=== PATIENT | male | born 1970 | race Caucasian/White ===

== ENCOUNTER 2017-02-08 16:11 | Observation (INO) | payer SELFPAY ==
[~2017-02-08] VITALS: Ht 190.5 cm; Wt 156.7 kg
[~2017-02-08 16:11] MED LIST: ALPRAZOLAM0.5 MG PO; AMOXICILLIN500 MG OR; AMOXICILLIN500 MG PO; ASPIRIN EC81 MG PO; ASPIRIN325 MG PO; AVELOX400 MG OR; CHERATUSSIN OR; CIPRODEX1 ML OT; CIPROFLOXACIN500 M1 PO; CIPROFLOXACN500 MG PO; DIFLUCAN100 MG PO; EAR DROPS EARWA6.5 % EX; EC ASPIRIN325 MG PO; FLEXERIL OR; FLONASE NASAL50 MCG; LISINOPRIL10 MG PO; LORATADINE D PO; METOPROL TAR100 MG PO; PRILOSEC20 MG/CAP PO; TAM75CAP OR; ULTRAM50 M1 OR; ZPAK PO; no home meds
[2017-02-08 16:44] LABS: HEMATOCRIT 46.6 % (39.0-50.0); IMMATURE GRANULOCYTES 0.4 % (0.0-1.0); MEAN CELL VOLUME 83.5 fL CALC (80.0-100.0); MEAN CORPUSCULAR HGB 28.7 pG CALC (26.0-32.0); MEAN CORPUSCULAR HGB CONC 34.3 g/L CALC (32.0-36.0); NEUT# 7.56 thou/uL (1.82-7.42); RED BLOOD COUNT 5.58 mill/uL (4.70-6.10); RED CELL DISTRI WIDTH 12.5 % (11.5-15.5)
[2017-02-08 16:57] LABS: ALBUMIN 5.1 g/dL (3.2-5.0); ALKALINE PHOSPHATASE 70 u/l (38-126); AMYLASE 44 u/l (30-110); ANION GAP 17 (6-22 (CALC)); BILIRUBIN, TOTAL 0.9 mg/dL (0.0-1.4); BUN 16 mg/dL (9-20); BUN/CREATININE RATIO 14 (12-20 (CALC)); CARBON DIOXIDE 31 mmol/l (22-30); CHLORIDE 99 mmol/l (95-108); CREATININE 1.1 mg/dL (0.7-1.3); GFR > 60 ML/MIN (>=60 (CALC)); GFR FOR AFR.AMER. > 60 ML/MIN (>=60 (CALC)); GLUCOSE 102 mg/dL (75-110); LIPASE 94 u/l (23-300); POTASSIUM 4.6 mmol/l (3.5-5.1); SGOT/AST 28 u/l (17-59); SGPT/ALT 45 u/l (21-72); SODIUM 142 mmol/l (137-146); TOTAL PROTEIN 8.5 g/dL (6.3-8.2)
[2017-02-08 17:08] LABS: MYOGLOBIN 37 ng/mL (0 - 121)
[2017-02-08] MEDS ORDERED: LOPRESSOR 550 MG/TAB PO (17:11)
[2017-02-08] MEDS ORDERED: ASPIRIN EC325 MG PO (17:11)
[2017-02-08 17:19] LABS: INTERNATIONAL NORMALIZED RATIO 0.9 RATIO (0.7-1.3); PROTHROMBIN TIME 10.1 SECONDS (9.0-12.5)
[2017-02-08 20:38] LABS: URINE BILIRUBIN - DIPSTICK NEGATIVE (NEGATIVE); URINE BLOOD DIPSTICK NEGATIVE (NEGATIVE); URINE CLARITY CLEAR; URINE COLOR YELLOW; URINE GLUCOSE - DIPSTICK NEGATIVE (NEGATIVE); URINE KETONE NEGATIVE (NEGATIVE); URINE LEUK ESTERASE NEGATIVE (NEGATIVE); URINE NITRITE - DIPSTICK NEGATIVE (Negative); URINE PH 6.5 (4.5-8.0); URINE PROTEIN - DIPSTICK 30 mg/dL (NEG-TRACE); URINE UROBILINOGEN - DIPSTICK 0.2 E.U./dL (0.2)
[2017-02-08 21:19] LABS: URINE MUCUS FEW hpf (NONE-FEW); URINE SQUAMOUS EPITHELIAL CELL FEW EPI/hpf (0-FEW)
[2017-02-08 23:25] VITALS: BP 147/89
[2017-02-09 04:25] VITALS: BP 145/85
[2017-02-09 06:20] LABS: HEMATOCRIT 42.3 % (39.0-50.0); HEMOGLOBIN 14.4 g/dl (14.0-18.0); IMMATURE GRANULOCYTES 0.2 % (0.0-1.0); MEAN CELL VOLUME 83.8 fL CALC (80.0-100.0); MEAN CORPUSCULAR HGB 28.5 pG CALC (26.0-32.0); NEUT# 9.38 thou/uL (1.82-7.42); RED BLOOD COUNT 5.05 mill/uL (4.70-6.10); RED CELL DISTRI WIDTH 12.8 % (11.5-15.5)
[2017-02-09 06:26] LABS: ALBUMIN 4.5 g/dL (3.2-5.0); ALKALINE PHOSPHATASE 64 u/l (38-126); ANION GAP 17 (6-22 (CALC)); BILIRUBIN, TOTAL 0.9 mg/dL (0.0-1.4); BUN 15 mg/dL (9-20); BUN/CREATININE RATIO 16 (12-20 (CALC)); CALCIUM 9.6 mg/dL (8.4-10.2); CARBON DIOXIDE 27 mmol/l (22-30); CHLORIDE 102 mmol/l (95-108); CREATININE 0.9 mg/dL (0.7-1.3); GFR > 60 ML/MIN (>=60 (CALC)); GFR FOR AFR.AMER. > 60 ML/MIN (>=60 (CALC)); GLUCOSE 102 mg/dL (75-110); POTASSIUM 4.5 mmol/l (3.5-5.1); SGOT/AST 24 u/l (17-59); SGPT/ALT 44 u/l (21-72); SODIUM 141 mmol/l (137-146); TOTAL PROTEIN 7.4 g/dL (6.3-8.2)
[2017-02-09 07:45] VITALS: BP 134/70
[2017-02-09 10:56] VITALS: BP 131/73
[2017-02-09 15:19] VITALS: BP 128/77
[2017-02-09 19:30] VITALS: BP 141/88
[2017-02-09 23:32] VITALS: BP 149/80
[2017-02-10 03:58] VITALS: BP 144/83
[2017-02-10 05:36] LABS: HEMATOCRIT 39.3 % (39.0-50.0); IMMATURE GRANULOCYTES 0.4 % (0.0-1.0); MEAN CELL VOLUME 85.1 fL CALC (80.0-100.0); MEAN CORPUSCULAR HGB 28.1 pG CALC (26.0-32.0); MEAN CORPUSCULAR HGB CONC 33.1 g/L CALC (32.0-36.0); NEUT# 3.8 thou/uL (1.82-7.42); RED BLOOD COUNT 4.62 mill/uL (4.70-6.10); RED CELL DISTRI WIDTH 12.7 % (11.5-15.5)
[2017-02-10 06:07] LABS: ANION GAP 12 (6-22 (CALC)); BUN 15 mg/dL (9-20); BUN/CREATININE RATIO 15 (12-20 (CALC)); CALCIUM 8.4 mg/dL (8.4-10.2); CARBON DIOXIDE 27 mmol/l (22-30); CHLORIDE 105 mmol/l (95-108); GFR > 60 ML/MIN (>=60 (CALC)); GFR FOR AFR.AMER. > 60 ML/MIN (>=60 (CALC)); GLUCOSE 84 mg/dL (75-110); POTASSIUM 4.1 mmol/l (3.5-5.1); SODIUM 140 mmol/l (137-146)
[2017-02-10 07:36] VITALS: BP 146/90
[2017-02-10] MEDS ORDERED: ASPIRIN EC325 MG PO (09:31)
[2017-02-10] MEDS ORDERED: LOPRESSOR 550 MG/TAB PO (09:31)
[2017-02-10] MEDS ORDERED: LORTAB 5-325 MG1 TAB PO (09:31)
== END 2017-02-10 10:09 | disposition home or self-care (01) | DRG 313 ==
LOC: ENPENDDIS → ED 16:11 → ED-I 21:37 → ED 21:38 → MS2 21:39
PROVIDERS: Emergency Medicine; ADMIT Internal Medicine Geriatric Medicine; ATTEND Internal Medicine Geriatric Medicine
DX: R07.9 Chest pain, unspecified (principal); E66.01 Morbid (severe) obesity due to excess calories; I10 Essential (primary) hypertension; R10.11 Right upper quadrant pain; R11.2 Nausea with vomiting, unspecified
CPT/HCPCS: G0378; Q9967

== ENCOUNTER 2017-06-10 14:04 | Inpatient (IN) | payer SELFPAY ==
[~2017-06-10] VITALS: Ht 193 cm; Wt 162.6 kg
[~2017-06-10 14:04] MED LIST changes: +ASPIRIN EC325 MG PO; +LOPRESSOR 550 MG/TAB PO; +LORTAB 5-325 MG1 TAB PO
[2017-06-10 15:10] LABS: HEMATOCRIT 33.1 % (39.0-50.0); IMMATURE GRANULOCYTES 0.6 % (0.0-1.0); MEAN CELL VOLUME 85.1 fL CALC (80.0-100.0); MEAN CORPUSCULAR HGB 28.3 pG CALC (26.0-32.0); MEAN CORPUSCULAR HGB CONC 33.2 g/L CALC (32.0-36.0); NEUT# 5.79 thou/uL (1.82-7.42); RED BLOOD COUNT 3.89 mill/uL (4.70-6.10); RED CELL DISTRI WIDTH 13.1 % (11.5-15.5)
[2017-06-10 15:24] LABS: PROTHROMBIN TIME 10.2 SECONDS (9.0-12.5)
[2017-06-10 15:31] LABS: ALBUMIN 4.6 g/dL (3.2-5.0); ALKALINE PHOSPHATASE 58 u/l (38-126); AMYLASE 30 u/l (30-110); ANION GAP 17 (6-22 (CALC)); BILIRUBIN, TOTAL 0.5 mg/dL (0.0-1.4); BUN 21 mg/dL (9-20); BUN/CREATININE RATIO 21 (12-20 (CALC)); CALCIUM 9.5 mg/dL (8.4-10.2); CARBON DIOXIDE 24 mmol/l (22-30); CHLORIDE 104 mmol/l (95-108); GFR > 60 ML/MIN (>=60 (CALC)); GFR FOR AFR.AMER. > 60 ML/MIN (>=60 (CALC)); GLUCOSE 89 mg/dL (75-110); LIPASE 103 u/l (23-300); SGOT/AST 23 u/l (17-59); SGPT/ALT 47 u/l (21-72); SODIUM 140 mmol/l (137-146)
[2017-06-10 16:37] LABS: URINE BILIRUBIN - DIPSTICK NEGATIVE (NEGATIVE); URINE BLOOD DIPSTICK NEGATIVE (NEGATIVE); URINE CLARITY CLEAR; URINE COLOR YELLOW; URINE GLUCOSE - DIPSTICK NEGATIVE (NEGATIVE); URINE KETONE NEGATIVE (NEGATIVE); URINE LEUK ESTERASE NEGATIVE (NEGATIVE); URINE NITRITE - DIPSTICK NEGATIVE (Negative); URINE PH 5.5 (4.5-8.0); URINE PROTEIN - DIPSTICK TRACE mg/dL (NEG-TRACE); URINE SPECIFIC GRAVITY >=1.030; URINE UROBILINOGEN - DIPSTICK 0.2 E.U./dL (0.2)
[2017-06-10 17:18] VITALS: BP 159/95
[2017-06-10 19:26] VITALS: BP 150/87
[2017-06-11] VITALS: BP 134/81
[2017-06-11 04:00] VITALS: BP 126/69
[2017-06-11 05:57] LABS: HEMATOCRIT 32.5 % (39.0-50.0); HEMOGLOBIN 11.1 g/dl (14.0-18.0); IMMATURE GRANULOCYTES 1.3 % (0.0-1.0); MEAN CELL VOLUME 85.3 fL CALC (80.0-100.0); MEAN CORPUSCULAR HGB 29.1 pG CALC (26.0-32.0); MEAN CORPUSCULAR HGB CONC 34.2 g/L CALC (32.0-36.0); NEUT# 4.07 thou/uL (1.82-7.42); RED BLOOD COUNT 3.81 mill/uL (4.70-6.10); RED CELL DISTRI WIDTH 13.2 % (11.5-15.5)
[2017-06-11 06:01] LABS: ALBUMIN 3.9 g/dL (3.2-5.0); ALKALINE PHOSPHATASE 52 u/l (38-126); ANION GAP 16 (6-22 (CALC)); BILIRUBIN, TOTAL 0.9 mg/dL (0.0-1.4); BUN 17 mg/dL (9-20); BUN/CREATININE RATIO 19 (12-20 (CALC)); CALCIUM 8.8 mg/dL (8.4-10.2); CARBON DIOXIDE 21 mmol/l (22-30); CHLORIDE 105 mmol/l (95-108); CREATININE 0.9 mg/dL (0.7-1.3); GFR > 60 ML/MIN (>=60 (CALC)); GFR FOR AFR.AMER. > 60 ML/MIN (>=60 (CALC)); GLUCOSE 97 mg/dL (75-110); POTASSIUM 4.4 mmol/l (3.5-5.1); SGOT/AST 31 u/l (17-59); SGPT/ALT 38 u/l (21-72); SODIUM 137 mmol/l (137-146); TOTAL PROTEIN 6.4 g/dL (6.3-8.2)
[2017-06-11 08:44] VITALS: BP 150/100
== END 2017-06-11 10:30 | disposition home or self-care (01) | DRG 378 ==
LOC: ED 14:04 → ED-I 16:24 → ED 16:37 → MS2 16:38
PROVIDERS: Emergency Medicine; ADMIT Internal Medicine Geriatric Medicine; ATTEND Internal Medicine Geriatric Medicine
DX: K62.5 Hemorrhage of anus and rectum (principal); Z68.41 Body mass index [BMI] 40.0-44.9, adult; I10 Essential (primary) hypertension; E66.9 Obesity, unspecified; Z90.49 Acquired absence of other specified parts of digestive tract
CPT/HCPCS: Q9967; S0164

== ENCOUNTER 2017-12-25 05:02 | Inpatient (IN) | payer SELFPAY ==
[~2017-12-25] VITALS: Ht 193 cm; Wt 158.0 kg
[2017-12-25] MEDS ORDERED: PRILOSEC20 MG/CAP PO (05:27)
[2017-12-25 05:45] LABS: HEMATOCRIT 49.3 % (39.0-50.0); HEMOGLOBIN 16.1 g/dl (14.0-18.0); IMMATURE GRANULOCYTES 0.3 % (0.0-1.0); MEAN CELL VOLUME 82.7 fL CALC (80.0-100.0); MEAN CORPUSCULAR HGB CONC 32.7 g/L CALC (32.0-36.0); NEUT# 10.36 thou/uL (1.82-7.42); RED BLOOD COUNT 5.96 mill/uL (4.70-6.10); RED CELL DISTRI WIDTH 14.1 % (11.5-15.5)
--- NOTE | 2017-12-25 05:49 | NUR ---
PT STATES THAT HE HAS HAD NAUSEA & VOMITING SINCE SUNDAY 12/24 WITH DIAHRRHEA STARTING THAT EVENING & CONTINUING TODAY.
[2017-12-25 05:52] LABS: ALBUMIN 5.4 g/dL (3.2-5.0); ALKALINE PHOSPHATASE 93 u/l (38-126); AMYLASE 38 u/l (30-110); ANION GAP 22 (6-22 (CALC)); BILIRUBIN, TOTAL 0.8 mg/dL (0.0-1.4); BUN 23 mg/dL (9-20); BUN/CREATININE RATIO 19 (12-20 (CALC)); CARBON DIOXIDE 21 mmol/l (22-30); CHLORIDE 108 mmol/l (95-108); CREATININE 1.2 mg/dL (0.7-1.3); GFR > 60 ML/MIN (>=60 (CALC)); GFR FOR AFR.AMER. > 60 ML/MIN (>=60 (CALC)); LIPASE 97 u/l (23-300); POTASSIUM 4.2 mmol/l (3.5-5.1); SGOT/AST 27 u/l (17-59); SGPT/ALT 41 u/l (21-72); SODIUM 146 mmol/l (137-146); TOTAL PROTEIN 8.6 g/dL (6.3-8.2)
--- NOTE | 2017-12-25 07:00 | NUR ---
REPORT RECIEVED FORM KRYSTAL CORCORAN.
--- NOTE | 2017-12-25 07:49 | NUR ---
PT AMBULATED TO BATHROOM TO OBTAIN URINE AND STOOL SAMPLE WITH A STEADY GAIT.
--- NOTE | 2017-12-25 08:07 | NUR ---
PT C/O RETURN OF NAUSEA. ER MD AWARE OF SAME AND CONTINUED ELEVATED BP. AWAITING NEW ORDERS
[2017-12-25 08:08] LABS: URINE BILIRUBIN - DIPSTICK NEGATIVE (NEGATIVE); URINE BLOOD DIPSTICK NEGATIVE (NEGATIVE); URINE CLARITY CLEAR; URINE COLOR YELLOW; URINE GLUCOSE - DIPSTICK NEGATIVE (NEGATIVE); URINE KETONE NEGATIVE (NEGATIVE); URINE LEUK ESTERASE NEGATIVE (NEGATIVE); URINE NITRITE - DIPSTICK NEGATIVE (Negative); URINE PROTEIN - DIPSTICK 100 mg/dL (NEG-TRACE); URINE SPECIFIC GRAVITY 1.015; URINE UROBILINOGEN - DIPSTICK 0.2 E.U./dL (0.2)
[2017-12-25 08:19] LABS: URINE AMORPH SEDIMENT FEW hpf (NONE-FER); URINE WBC 0-2 WBC/hpf (0-5)
[2017-12-25 08:20] LABS: URINE RBC 0-2 RBC/hpf (0-5)
[2017-12-25 08:21] LABS: URINE COARSE GRANULAR CAST FEW lpf; URINE HYALINE CAST FEW lpf (NONE-RARE)
[2017-12-25 08:22] LABS: URINE CASTS FEW lpf (NONE-RARE)
[2017-12-25 08:53] LABS: C. DIFFICILE TOXIN A&B NEGATIVE (NEGATIVE)
--- NOTE | 2017-12-25 09:13 | NUR ---
SBAR PRINTED TO FLOOR
--- NOTE | 2017-12-25 09:18 | NUR ---
Admission Note Report Given to: YANIRA RICE Transported by: X Wheelchair Stretcher Transported with: X Nurse Transporter Patent [id number] Family Nurse Practitioner
--- NOTE | 2017-12-25 09:28 | NUR ---
PT CAME VIA STRETCHER BY AMISHA KAUR. JAZMYNE IN ROOM TO ASSIST PT TO ROOM.
[2017-12-25 09:30] VITALS: BP 158/100
--- NOTE | 2017-12-25 10:00 | NUR ---
PT IS RESTING IN BED. ORIENTED TO CALL LIGHT SYSTEM, AND SAFETY PRECAUTIONS REINFORCED. PT VERBALIZED UNDERSTANDING. IN ROOM.
--- NOTE | 2017-12-25 13:27 | NUR ---
ZOFRAN GIVEN SEE EMAR FOR NAUSEA. PT DENIES ANY OTHER NEEDS AT THIS TIME.
[2017-12-25 13:32] VITALS: BP 167/87
--- NOTE | 2017-12-25 16:05 | NUR ---
ASSESSMENT DONE, RESPS EVEN AND UNLABORED. #20 RAC THAT IS INFUSING NS 100ML. IN ROOM. PT STATED THAT HE HAS NOT HAD DIRRAHEA SINCE HE HAS BEEN IN [facility]. PT DENIES ANY NEEDS AT THIS TIME.
[2017-12-25 16:07] VITALS: BP 124/65
--- NOTE | 2017-12-25 16:32 | NUR ---
PT IS SITTING IN BED USING HIS CELL PHONE AND AT SIDE. PT DENIES PAIN, NAUSEA OR DIARRHEA AT THIS TIME. CALL LIGHT IN REACH.
[2017-12-25 19:10] VITALS: BP 168/97
--- NOTE | 2017-12-25 19:35 | NUR ---
BEDSIDE REPORT RECEIVED FROM KRYSTAL DOYLE. PT RESTING IN BED WATCHING TV. C/O MODERATE PAIN TO ABDOMEN WITH ASSOCIATED NAUSEA. RESPIRATIONS EVEN AND UNLABORED ON ROOM AIR. AT BEDSIDE. PLAN OF CARE DISCUSSED. PT ENCOURAGED TO VERBALIZE CONCERNS. STATES UNDERSTANDING. SAFETY MEASURES IN PLACE. CALL LIGHT WITHIN REACH.
[2017-12-26 01:08] VITALS: BP 149/86
--- NOTE | 2017-12-26 02:21 | NUR ---
PT ASLEEP AT THIS TIME WITH NO SIGNS OF DISTRESS NOTED; SNORING. RESPIRATIONS EVEN AND UNLABORED ON ROOM AIR. REMAINS AT BEDSIDE. IV FLUIDS INFUSING WITHOUT DIFFICULTY; IV SITE APPEARS HEALTHY. PRN CLONIDINE GIVEN FOR BP OF 168/97 WITH F/U BP OF 149/86. WILL CONTINUE TO MONITOR. DENIES PAIN AND NAUSEA. SAFETY MEASURES IN PLACE. CALL LIGHT WITHIN REACH.
[2017-12-26 04:04] VITALS: BP 145/89
--- NOTE | 2017-12-26 04:47 | NUR ---
PT SLEPT WELL THROUGHOUT THE NIGHT WITH NO FURTHER C/O PAIN OR NAUSEA. USES URINAL TO VOID AT BEDSIDE. REMAINS WITH PT. NO ACUTE CHANGES IN CONDITION NOTED. SAFETY MEASURES IN PLACE. CALL LIGHT WITHIN REACH.
[2017-12-26 05:43] LABS: HEMATOCRIT 42.5 % (39.0-50.0); HEMOGLOBIN 13.8 g/dl (14.0-18.0); IMMATURE GRANULOCYTES 0.4 % (0.0-1.0); MEAN CELL VOLUME 83.2 fL CALC (80.0-100.0); MEAN CORPUSCULAR HGB CONC 32.5 g/L CALC (32.0-36.0); NEUT# 7.32 thou/uL (1.82-7.42); RED BLOOD COUNT 5.11 mill/uL (4.70-6.10); RED CELL DISTRI WIDTH 14.2 % (11.5-15.5)
[2017-12-26 05:45] LABS: ALBUMIN 3.8 g/dL (3.2-5.0); ALKALINE PHOSPHATASE 68 u/l (38-126); ANION GAP 14 (6-22 (CALC)); BILIRUBIN, TOTAL 0.8 mg/dL (0.0-1.4); BUN 22 mg/dL (9-20); BUN/CREATININE RATIO 21 (12-20 (CALC)); CARBON DIOXIDE 25 mmol/l (22-30); CHLORIDE 107 mmol/l (95-108); GFR > 60 ML/MIN (>=60 (CALC)); GFR FOR AFR.AMER. > 60 ML/MIN (>=60 (CALC)); POTASSIUM 3.8 mmol/l (3.5-5.1); SGOT/AST 25 u/l (17-59); SGPT/ALT 38 u/l (21-72); SODIUM 142 mmol/l (137-146); TOTAL PROTEIN 6.3 g/dL (6.3-8.2)
--- NOTE | 2017-12-26 07:00 | NUR ---
BEDSIDE REPORT RECEIVED BY GLADIS,NURSE. PT IS RESTING IN BED AND AT SIDE. PT DENIES PAIN AT THIS TIME. CALL LIGHT IN REACH.
[2017-12-26 07:54] VITALS: BP 150/83
--- NOTE | 2017-12-26 08:00 | NUR ---
PT IS SITTING IN BED. ASSESSMENT DONE AND RESPS EVEN AND UNLABORED. #20 RAC: INFUSING NS AT 100ML. PT DENIES PAIN AT THIS TIME. ORIENTED TO CALL LIGHT AND SAFETY PRECAUTIONS REINFORCED. IN ROOM.
[2017-12-26] MEDS ORDERED: AMPICILLIN500 MG PO (09:01)
--- NOTE | 2017-12-26 12:10 | NUR ---
Discharge instructions given. Patient verbalizes understanding of same. Discharged in stable condition via Ambulatory to Home with spouse. All belongings sent with pt.
== END 2017-12-26 12:16 | disposition home or self-care (01) | DRG 372 ==
LOC: ED 05:02 → ED-I 08:24 → ED 09:05 → MS2 09:06
PROVIDERS: Emergency Medicine; ADMIT Internal Medicine Geriatric Medicine; ATTEND Internal Medicine Geriatric Medicine
DX: A02.0 Salmonella enteritis (principal); K56.0 Paralytic ileus; E66.01 Morbid (severe) obesity due to excess calories; Z68.41 Body mass index [BMI] 40.0-44.9, adult; I10 Essential (primary) hypertension; Z90.49 Acquired absence of other specified parts of digestive tract; E86.0 Dehydration

== ENCOUNTER 2020-02-26 | Observation (INO) | payer SELFPAY ==
[~2020-02-26] MED LIST changes: +AMPICILLIN500 MG PO
--- NOTE | 2020-02-26 15:20 | NUR ---
PT TO ROOM VIA WC FOR BEDSIDE TRIAGE
[2020-02-26] MEDS ORDERED: ZESTRIL10 M1 PO (15:54)
[2020-02-26] MEDS ORDERED: [UNRECOGNIZED DRUG - OTHER] PO (15:55)
--- NOTE | 2020-02-26 16:04 | NUR ---
PT MEDICATED PER MAR FOR XIAO AND CHEST PRESSURE; MONITORING DEVICES IN PLACE; ADVISED OF CONTINUED WAIT TIME; CALL LIGHT WITHIN REACH; WILL CONTINUE TO MONITOR
[2020-02-26 16:13] LABS: HEMATOCRIT 46.3 % (39.0-50.0); IMMATURE GRANULOCYTES 0.2 % (0.0-5.0); MEAN CELL VOLUME 83.9 fL CALC (80.0-100.0); MEAN CORPUSCULAR HGB 27.2 pG CALC (26.0-32.0); MEAN CORPUSCULAR HGB CONC 32.4 g/dL CAL (32.0-36.0); NEUT# 5.8 thou/uL (1.82-7.42); RED BLOOD COUNT 5.52 mill/uL (4.70-6.10); RED CELL DISTRI WIDTH 13.2 % (11.5-15.5)
[2020-02-26 16:29] LABS: ANION GAP 13 (6-22 (CALC)); BUN 15 mg/dL (9-20); BUN/CREATININE RATIO 18 (12-20 (CALC)); CARBON DIOXIDE 26 mmol/l (22-30); CHLORIDE 101 mmol/l (95-108); CREATININE 0.8 mg/dL (0.7-1.3); GFR > 60 ML/MIN (>=60 (CALC)); GFR FOR AFR.AMER. > 60 ML/MIN (>=60 (CALC)); POTASSIUM 4.2 mmol/l (3.5-5.1); SODIUM 135 mmol/l (137-146)
--- NOTE | 2020-02-26 17:00 | NUR ---
PT MEDICATED PER MAR FOR HTN; ADVISED OF CONTINUED WAIT TIME; MONITORING DEVICES IN PLACE; WILL CONTINUE TO MONITOR
--- NOTE | 2020-02-26 17:31 | NUR ---
PT AMB TO BR WITH SLOW STEADY GAIT
--- NOTE | 2020-02-26 18:58 | NUR ---
A/OX3 CLEAR SPEECH NO DEFICITS GCS 15 MAEW. SR WITHOUT ECTOPY.W/P/D SKIN
--- NOTE | 2020-02-26 19:07 | NUR ---
PHONE REPORT TO NURSE SHERRI HINOJOSA [facility]
--- NOTE | 2020-02-26 19:08 | NUR ---
DR CABA CALLED RE BP AND XIAO
--- NOTE | 2020-02-26 19:13 | NUR ---
PT TRANSPORTED TO MS RM 262 VIA TELE IN [facility];E CONDITION
[2020-02-26 19:18] VITALS: BP 201/106
--- NOTE | 2020-02-26 19:18 | NUR ---
191-Pt pleasant 49y/o male. Brought to med-surg room 262 from ER. RN CELINE accompanied pt and gave me handoff. Pt complains of headache. Denies chest pain. Blood pressure elevated. Admission assessment complete. Pt is stable, blood pressure unstable. Dr. Parikh is assigned MD. Pt states he is comfortable except for headache. Pt given Nitro in ED so this is an expected finding from the med. Comfort measures provided. Bed low and locked. Call light and phone within reach. Pt stable, no s/s of distress. Will continue to monitor.
[2020-02-26 21:00] VITALS: BP 144/82
--- NOTE | 2020-02-26 23:00 | NUR ---
2300-Pt complains of headache. Tylenol administered, heat pack for comfort and repositioned. Also provided nasal cannula with 2 liter of 02 as I feel that pt would benefit from increased oxygenation. No s/s of distress. Bed low and locked. Call light and phone within reach. Pt stable. Will continue to monitor.
[2020-02-26 23:50] VITALS: BP 171/97
--- NOTE | 2020-02-27 03:30 | NUR ---
0330-Pt. sitting up in bed. Hydralazine given for blood pressure of 180/98. Pt complains of headache. Reposition and provided with warm compress. No s/s of distress. Bed low and locked. Call light and phone within reach. Pt stable. Will continue to monitor.
[2020-02-27 03:37] VITALS: BP 148/89
--- NOTE | 2020-02-27 05:46 | NUR ---
0545-Pt complaining of headache. Provided PRN tylenol times 2 doses. Pt still complaining of headache. I tried calling Dr. Parikh at [phone] to discuss situation and hopefully discuss recommendation of other treatment modalities. Phone call not answered and mailbox is full. I will wait 15 minutes and try to call back.
[2020-02-27 07:41] VITALS: BP 162/90
--- NOTE | 2020-02-27 07:41 | NUR ---
PT SITTING IN BED. A&O X3. NO DISTRESS NOTED. PT A SLIGHT XIAO ALONG WITH SOME NAUSEA. NO REPORTS OF ACTIVE VOMITING. EXPLAINED TO THE PT BP HAS BEEN UNSTABLE AND THAT IT WAS TO BE MONITORED. NO OTHER NEEDS AT THIS TIME. ASSESSMENT COMPLETED. DISCUSSED POC. CALL LIGHT IN REACH. CONTINUE TO MONITOR.
--- NOTE | 2020-02-27 09:15 | NUR ---
CALLED TO VERIFY LISINOPRIL DAILY ORDERS. PER AND COMPARING TO THE LAST TIME PRESCRIPTION WAS FILLED AT [facility], PT IS TO TAKE 2 20 MG TAB ONCE A DAY FOR A TOTAL OF 40 MG INTAKE. [employer] ASSISTANTS NOTIFIED
[2020-02-27] MEDS ORDERED: ZESTRIL40 MG PO (09:20)
[2020-02-27] MEDS ORDERED: NORVASC5 M1 PO (09:54)
--- NOTE | 2020-02-27 10:22 | NUR ---
PT GIVEN MOTRIN TO HELP WITH XIAO, NORVASC AND 20 MG OF LISINPRIL GIVEN. WILL REASSESS BP
[2020-02-27 11:47] VITALS: BP 168/94
--- NOTE | 2020-02-27 11:47 | NUR ---
AP SMITH NOTIFIED OF PTS BP STILL 168/94. PER AP GIVE PT APRESOLINE IV, ONCE BP HAS BEEN STABILIZED PT CAN GO HOME
--- NOTE | 2020-02-27 16:27 | NUR ---
PO CLONIDINE GIVEN PT BP 158/58. EXPLAINED TO THE PT THAT BP WOULD BE CHECKED ONE LAST TIME. IF IT WAS WITHIN PARAMETERS HE WOULD BE DISCHARGED. IF NOT MD WOULD BE NOTIFIED.
[2020-02-27 16:28] VITALS: BP 158/88
--- NOTE | 2020-02-27 17:50 | NUR ---
D/C INSTRUCTIONS GIVEN TO PT. PT VERBALIZED UNDERSTANDING. IV REMOVED, INTACT UPON REMOVAL.
--- NOTE | 2020-02-27 17:59 | NUR ---
Discharge instructions given. Patient verbalizes understanding of same. Discharged in stable condition ambulatory to home accompanied by staff. All belongings sent with pt.
== END 2020-02-27 17:59 | disposition home or self-care (01) | DRG 313 ==
PROVIDERS: Family Medicine; ADMIT Internal Medicine
DX: R07.9 Chest pain, unspecified (principal); I10 Essential (primary) hypertension; R51 Headache; G47.30 Sleep apnea, unspecified
CPT/HCPCS: G0378

== ENCOUNTER 2021-10-30 22:31 | Emergency (ER) | payer SELFPAY ==
[~2021-10-30] VITALS: Ht 190.5 cm; Wt 147.0 kg
[~2021-10-30 22:31] MED LIST changes: +NORVASC5 M1 PO; +ZESTRIL10 M1 PO; +ZESTRIL40 MG PO; +[UNRECOGNIZED DRUG - OTHER] PO
[2021-10-31] MEDS ORDERED: MEDICAL MARIJUANA (00:01)
[2021-10-31 00:41] LABS: HEMATOCRIT 45.9 % (39.0-50.0); HEMOGLOBIN 14.9 g/dl (14.0-18.0); IMMATURE GRANULOCYTES 0.4 % (0.0-5.0); MEAN CELL VOLUME 86.8 fL CALC (80.0-100.0); MEAN CORPUSCULAR HGB 28.2 pG CALC (26.0-32.0); MEAN CORPUSCULAR HGB CONC 32.5 g/dL CAL (32.0-36.0); NEUT# 10.09 thou/uL (1.82-7.42); RED BLOOD COUNT 5.29 mill/uL (4.70-6.10); RED CELL DISTRI WIDTH 12.7 % (11.5-15.5)
[2021-10-31 00:47] LABS: ALBUMIN 4.7 g/dL (3.2-5.0); ALKALINE PHOSPHATASE 66 u/l (38-126); AMYLASE 46 u/l (30-110); ANION GAP 15 (6-22 (CALC)); BILIRUBIN, TOTAL 0.8 mg/dL (0.0-1.4); BUN 21 mg/dL (9-20); BUN/CREATININE RATIO 16 (12-20 (CALC)); CARBON DIOXIDE 24 mmol/l (22-30); CHLORIDE 104 mmol/l (95-108); CREATININE 1.3 mg/dL (0.7-1.3); GFR 59 ML/MIN (>=60 (CALC)); GFR FOR AFR.AMER. > 60 ML/MIN (>=60 (CALC)); LIPASE 111 u/l (23-300); POTASSIUM 4.6 mmol/l (3.5-5.1); SODIUM 138 mmol/l (137-146); TOTAL PROTEIN 8.1 g/dL (6.3-8.2)
[2021-10-31 00:48] LABS: SGOT/AST 32 u/l (17-59)
[2021-10-31 02:16] LABS: URINE BILIRUBIN - DIPSTICK NEGATIVE (NEGATIVE); URINE BLOOD DIPSTICK LARGE (NEGATIVE); URINE COLOR YELLOW; URINE GLUCOSE - DIPSTICK NEGATIVE (NEGATIVE); URINE KETONE NEGATIVE (NEGATIVE); URINE PROTEIN - DIPSTICK 30 mg/dL (NEG-TRACE); URINE SPECIFIC GRAVITY >=1.030; URINE UROBILINOGEN - DIPSTICK 0.2 E.U./dL (0.2)
[2021-10-31 02:17] LABS: URINE LEUK ESTERASE NEGATIVE (NEGATIVE); URINE NITRITE - DIPSTICK NEGATIVE (Negative)
[2021-10-31 02:21] LABS: URINE BACTERIA FEW hpf; URINE EPITHELIAL CELLS FEW EPI/hpf (0-FEW); URINE RBC 50-100 RBC/hpf (0-5)
[2021-10-31 02:22] LABS: URINE YEAST RARE hpf
[2021-10-31] MEDS ORDERED: ATIVAN0.5 MG PO (05:05)
[2021-10-31] MEDS ORDERED: PHENERGAN25 MG RE (05:05)
[2021-10-31 06:09] VITALS: BP 178/90
== END 2021-10-31 05:45 | disposition home or self-care (01) | DRG 392 ==
LOC: ED 22:31
PROVIDERS: Emergency Medicine
DX: R10.9 Unspecified abdominal pain (principal); R11.2 Nausea with vomiting, unspecified; I10 Essential (primary) hypertension
CPT/HCPCS: J2060; Q9967

== ENCOUNTER 2024-10-14 10:19 | Emergency (ER) | payer OTHER ==
[2024-10-14] VITALS (19 sets, daily range): BP systolic 98–143; BP diastolic 53–106
[~2024-10-14] VITALS: Ht 190.5 cm; Wt 154.0 kg
[~2024-10-14 10:19] MED LIST changes: +ATIVAN0.5 MG PO; +MEDICAL MARIJUANA; +PHENERGAN25 MG RE
[2024-10-14] MEDS ORDERED: HYDROCO/APAP1 TA9 PO (13:09)
== END 2024-10-14 13:21 | disposition home or self-care (01) | DRG 556 ==
LOC: ED 10:19
DX: M25.562 Pain in left knee (principal); I10 Essential (primary) hypertension